=== PATIENT | female | born 1975 | race Caucasian/White ===

== ENCOUNTER 2018-09-16 08:12 | Day surgery (SDC) | payer BC ==
[2018-09-16] MEDS ORDERED: FENTAnyl 50 MCG/ML VIAL (10:02)
[2018-09-16] MEDS ORDERED: MIDAZOLAM 1 MG/ML 2 ML INJ ×2 (10:02)
== END 2018-09-16 12:36 | disposition home or self-care (01) ==
LOC: GIL 08:12
DX: Z12.11 Encounter for screening for malignant neoplasm of colon (principal); K64.4 Residual hemorrhoidal skin tags; Z80.0 Family history of malignant neoplasm of digestive organs
CPT/HCPCS: 45378; 84703